=== PATIENT | female | born 1935 | race Caucasian/White ===

== ENCOUNTER 2018-06-29 11:43 | Day surgery (SDC) | payer MEDICARE, BC ==
[2018-06-27 15:19] VITALS: BMI 27.3
[~2018-06-29 11:43] MED LIST: LACTATED RINGERS 1,000 ML IV SCH; LIDOCAINE 1% 20 ML VIAL (10MG/ML) FOR IV START INTRADERMA PRN; MIDAZOLAM (PF) 2 MG/2 ML VIAL IV PRN
[2018-06-29 11:54] VITALS: RESP 16; TEMP 97.9
[2018-06-29] MEDS ORDERED: PROPOFOL 10 MG/ML 20 ML VIAL IV ONE (12:59)
--- NOTE | 2018-06-29 13:40 | P.PCN ---
Date of Procedure: 06/29/18 Description of Procedure: BRIEF HISTORY: A 82-year-old female who presents for EGD with dilation for treatment of esophageal dysphagia. The patient had a prior history of esophageal foreign body. For years ago at which time the patient was taken for EGD and underwent dilation with a 54-Cambodian balloon dilator. The patient presented to clinic reporting intermittent episodes of solid food dysphagia. She reports that one of the episodes lasted 4 hours and she was planning on presenting to the emergency department for further evaluation for the Past. The patient has been unable to tolerate Zantac and Prilosec in the past reporting vomiting with the medications.. PROCEDURE PERFORMED: Esophagogastroduodenoscopy with biopsy and rigid esophageal dilation. PREOPERATIVE DIAGNOSIS: Esophageal dysphagia. ESTIMATED BLOOD LOSS: Minimal. IV sedation per anesthesia. PROCEDURE: After informed consent was obtained, the patient was brought into the endoscopy unit. IV sedation was administered by Anesthesia under continuous monitoring. Initially the Olympus GIF-190 video endoscope was inserted into the mouth. Esophagus intubated without any difficulty. It was gradually advanced into the stomach and duodenum and carefully examined. The bulb and the second part of the duodenum appeared normal. The scope at this time was withdrawn to the stomach, adequately insufflated with air, and upon careful examination, mucosa of the antrum, body, cardia and the fundus appeared normal, except for mild scattered erythema in the antrum and body suggestive of mild gastritis which was biopsied. The scope was then withdrawn into the esophagus. The GE junction was located at 30 cm from the incisors. A large hiatal hernia was noted. The esophagus appeared normal, however the proximal esophagus appeared to be somewhat narrowed with gentle pressure needed to pass the endoscope past this point. There were no erosions or ulcerations seen. At this time the endoscope was advanced back into the patient's stomach and a guidewire was passed through the scope. The scope was then withdrawn out of the stomach through the esophagus and out of the mouth as the guidewire was advanced to maintain guidewire position in the stomach. Rigid dilators were then passed over the wire and dilation was performed with 48-Cambodian and 51-Cambodian esophageal dilators. The videoendoscope was then advanced back through the mouth into the esophagus and stomach were second look with blood noted which was lavaged and suctioned with no active bleeding noted. The patient tolerated the procedure well. IMPRESSION: 1. Mild gastritis antrum and body, biopsied. 2. Rigid esophageal dilation. RECOMMENDATIONS: The findings of this examination were discussed with the patient [].
[2018-06-29 14:04] VITALS: BP 139/84; PULSE 70
== END 2018-06-29 14:20 | disposition home or self-care (01) ==
LOC: ORWHC2ENDO 11:43
PROVIDERS: ATTEND Internal Medicine
DX: K29.50 Unspecified chronic gastritis without bleeding (principal); K22.2 Esophageal obstruction; K44.9 Diaphragmatic hernia without obstruction or gangrene; I10 Essential (primary) hypertension; J44.9 Chronic obstructive pulmonary disease, unspecified; M19.90 Unspecified osteoarthritis, unspecified site; K21.9 Gastro-esophageal reflux disease without esophagitis; F41.9 Anxiety disorder, unspecified; Z88.8 Allergy status to other drugs, medicaments and biological substances; Z87.891 Personal history of nicotine dependence
CPT/HCPCS: 88305; 43239; 43248; J2704; 43249

== ENCOUNTER → 2019-09-28 | Outpatient (CLI) | payer MEDICARE, BC ==
--- NOTE | 2019-09-28 18:24 | MR ---
EXAMINATION TYPE: MR hip LT wo con DATE OF EXAM: 09/28/2019 COMPARISON: None HISTORY: Fracture versus avascular necrosis, pain left hip joint space CONTRAST: Performed utilizing 0 mL intravenous Gadavist gadolinium contrast. TECHNIQUE: Multiplanar, multiecho imaging on a 3.0 Eli magnet is performed through the region of th e left hip. Right hip is included within the [id number] for comparison portion of the study. FINDINGS: There is extensive edema throughout the left hip region musculature and subcutaneous tissues. This in cludes the vastus lateralis muscle vastus medialis and rectus femoris. No abnormal fluid collections are identified to suggest abscess. Edema is within the subcutaneous tissues as well however. No joint effusion is evident on the left. A small joint effusion may be present on the right. Differential diagnosis could include but is not limited to myositis, inflammatory myopathies such as those associated with connective tissue diseases No abnormal signal within the femoral head or femoral neck is evident on the left. No suspicious bedolla ges for avascular necrosis are evident. No abnormal fluid within the left hip joint space is evident. IMPRESSIONS: 1. Fairly extensive signal change through left hip 5 muscles both medially and laterally. Lateral is greater. Subcutaneous edema is present. Etiologies for myositis should be considered. 2. No suspicious changes within the femoral head to suggest avascular necrosis.
== END | disposition home or self-care (01) ==
LOC: RADMRIMAIN 15:00
PROVIDERS: ATTEND Orthopaedic Surgery
DX: M79.89 Other specified soft tissue disorders (principal)

== ENCOUNTER 2021-04-16 14:19 | Observation (INO) | payer MEDICARE, BC ==
--- NOTE | 2021-04-16 15:41 | ED ---
General Adult HPI - General Chief complaint: ENT Stated complaint: Vomiting Time Seen by Provider: 04/16/21 15:09 Source: patient Mode of arrival: ambulatory Limitations: no limitations - History of Present Illness Initial comments: Dictation was produced using [employer] dictation software. please excuse any grammatical, word or spelling errors. Chief Complaint: 85-year-old female past medical history of esophageal issues presents to the ER for esophageal foreign body sensation History of Present Illness: Patient is an 85-year-old female she has past medical history of Schatzki's ring and multiple occasions of esophageal foreign body since the ER for sensation of esophageal foreign body. Patient presents with son who is at the bedside. He states that over the last 2-3 years she's had multiple seizures of upper endoscopy were there was impacted food bolus. She is required esophageal balloon dilatation on several occasions. This morning she had breakfast. She states that during eating she noticed that she felt like food was stuck in her throat. She complains of esophageal is foreign body sensation in her lower throat and upper chest area. Patient had breakfast at approximately 9 AM. Since then she has been spitting up. She denies any shortness of breath. The ROS documented in this emergency department record has been reviewed and confirmed by me. Those systems with pertinent positive or negative responses have been documented in the HPI. All other systems are other negative and/or noncontributory. PHYSICAL EXAM: General Impression: Alert and oriented x3, spitting up HEENT: Normocephalic atraumatic, extra-ocular movements intact, pupils equal and reactive to light bilaterally, mucous membranes moist. Cardiovascular: Heart regular rate and rhythm Chest: Able to complete full sentences, no retractions, no tachypnea Abdomen: abdomen soft, non-tender, non-distended, no organomegaly Musculoskeletal: Pulses present and equal in all extremities, no peripheral edema Motor: no focal deficits noted Neurological: CN II-XII grossly intact, no focal motor or sensory deficits noted Skin: Intact with no visualized rashes Psych: Normal affect and mood ED course: 85 y old female past medical history of esophageal Schatzki's ring presents to the ER for esophageal foreign body sensation since breakfast this morning. Vital signs upon arrival are within acceptable limits. Contacted Dr. Carpenter. Initial plan was to do a stat EGD for evaluation however there was no availability for anesthesiology to do sedation for the procedure. Dr. Carpenter request the patient be admitted to medicine and will have EGD in the morning. Patient is agreeable with plan. - Related Data Home Medications Medication Instructions Recorded Confirmed Latanoprost/Pf [Latanoprost 0.005% 1 drop RIGHT EYE HS 06/27/18 04/16/21 Eye Drop] Omeprazole 20 mg PO DAILY 04/16/21 04/16/21 Timolol 0.5% Ophth Soln [Timoptic 1 drop RIGHT EYE BID 04/16/21 04/16/21 0.5% Ophth Soln] prednisoLONE ACETATE 1% OPHTH 1 drops LEFT EYE DAILY 04/16/21 04/16/21 [Pred Forte 1%] Allergies Allergy/AdvReac Type Severity Reaction Status Date / Time esomeprazole [From Nexium] Allergy Nausea & Verified 04/16/21 16:08 Vomiting Review of Systems ROS Statement: Those systems with pertinent positive or pertinent negative responses have been documented in the HPI. ROS Other: All systems not noted in ROS Statement are negative. Past Medical History Additional Past Medical History / Comment(s): eye disorder History of Any Multi-Drug Resistant Organisms: None Reported Past Surgical History: Adenoidectomy, Appendectomy, Tonsillectomy Past Anesthesia/Blood Transfusion Reactions: No Reported Reaction Past Psychological History: No Psychological Hx Reported Smoking Status: Never smoker Past Alcohol Use History: Daily Past Drug Use History: None Reported - Past Family History Mother Family Medical History: No Reported History General Exam Limitations: no limitations Course Vital Signs 04/16/21 14:37 Temperature 97.8 F Pulse Rate 73 Respiratory 20 Rate Blood Pressure 151/89 O2 Sat by Pulse 98 Oximetry Disposition Clinical Impression: Food impaction of esophagus Disposition: ADMITTED IP TO THIS [facility] Condition: Fair Referrals: None,Stated [Primary Care Provider] - 1-2 days
[2021-04-16] MEDS ORDERED: SODIUM CHLORIDE 0.9% 500 ML 500 ML IV STA (17:33)
[2021-04-16] MEDS ORDERED: SODIUM CHLORIDE 0.9% 1,000 ML IV STA (17:33)
[2021-04-16] MEDS ORDERED: NALOXONE 0.4 MG/ML 1 ML VIAL IV PRN (17:33)
[2021-04-16 17:48] LABS: Basophils # (A) 0.1 k/uL (0-0.2); Basophils % (A) 1 %; Eosinophils # (A) 0.5 k/uL (0-0.7); Eosinophils % (A) 4 %; HCT 44.3 % (34.0-46.0); HGB 15.1 gm/dL (11.4-16.0); Lymphocytes # (A) 1.4 k/uL (1.0-4.8); Lymphocytes % (A) 13 %; MCH 31.3 pg (25.0-35.0); MCHC 34.1 g/dL (31.0-37.0); MCV 91.9 fL (80.0-100.0); Monocytes # (A) 0.5 k/uL (0-1.0); Monocytes % (A) 4 %; Neutrophils # (A) 8.2 k/uL (1.3-7.7); Neutrophils % (A) 77 %; Platelet Count 267 k/uL (150-450); RBC 4.82 m/uL (3.80-5.40); RDW 12.1 % (11.5-15.5); WBC 10.6 k/uL (3.8-10.6)
[2021-04-16 17:58] LABS: African American GFR (CKD) >90 (>60 ml/min/1.73 sqM); Anion Gap 7 mmol/L; Blood Urea Nitrogen 14 mg/dL (7-17); Carbon Dioxide 29 mmol/L (22-30); Chloride 98 mmol/L (98-107); Glucose 114 mg/dL (74-99); Non-African American GFR(CKD) 79 (>60 ml/min/1.73 sqM); Potassium 4.6 mmol/L (3.5-5.1); Sodium 134 mmol/L (137-145)
[2021-04-16] MEDS ORDERED: IV FLUID CONTINUATION 900 ML IV ONE (20:03)
[2021-04-16] MEDS ORDERED: PROPOFOL 10 MG/ML 20 ML VIAL IV ONE (20:10)
--- NOTE | 2021-04-16 20:29 | P.PCN ---
Date of Procedure: 04/16/21 Procedure(s) Performed: BRIEF HISTORY: Patient is a 85-year-old, pleasant, white female scheduled for an upper endoscopy as a part of evaluation of acute food impaction for which she came to the emergency room this evening. She has prior history of GERD and Schatzki's ring for which she underwent EGD with balloon dilation in July of this year.. PROCEDURE PERFORMED: Esophagogastroduodenoscopy followed body removal. PREOPERATIVE DIAGNOSIS: Acute food impaction. IV sedation per anesthesia. PROCEDURE: After informed consent was obtained, the patient was brought into the endoscopy unit. IV sedation was administered by Anesthesia under continuous monitoring. Initially the Olympus GIF-140 video endoscope was inserted into the mouth. Esophagus intubated without any difficulty. It was gradually advanced into the midesophagus where there was large amount of liquid and solid food noted. The liquid was aspirated. Using a Vidal net I was able to retrieve some of the solid pieces from the esophagus. Subsequently I was gently able to push the rest of the food bolus into the stomach. The scope was advanced into the stomach and duodenum and carefully examined. The bulb and the second part of the duodenum appeared normal. The scope at this time was withdrawn to the stomach, adequately insufflated with air, and upon careful examination, mucosa of the antrum, body, cardia and the fundus appeared normal. The scope was then withdrawn into the esophagus. Moderate hiatal hernia noted. The GE junction was located at 32 cm from the incisors. It was a distal esophageal stricture identified with circumferential erythema with a luminal diameter of 12 mm. The mid and distal esophagus appeared slightly tortuous. The proximal esophagus appeared normal. The patient tolerated the procedure well. IMPRESSION: 1. Large amount of liquid and solid food noted in the mid and distal esophagus status post removal as described above. 2. Distal esophageal stricture at the GE junction and moderate size hiatal hernia. RECOMMENDATIONS: The findings of this examination were discussed with the pat ieremberto . She'll be observed in the hospital until tomorrow morning. We'll start her on a full liquid diet. If she is able to tolerate her diet when she can be discharged home tomorrow morning..
--- NOTE | 2021-04-16 20:53 | CONS ---
CONSULTATION DATE OF DICTATION: 04/16/2021 REASON FOR CONSULTATION: Acute food impaction. HISTORY OF PRESENT ILLNESS: The patient is an 85-year-old pleasant white female with history of GERD and Schatzki's ring, for which she underwent EGD with dilation about 10 months ago. She presented to the emergency room with acute food impaction. She was eating some breakfast this morning with avocado garlic and felt like food got stuck in her mid esophagus. She tried drinking water, with no help. She came to the emergency room and subsequently was admitted to observation. She is scheduled for an upper endoscopy for foreign body removal. PAST MEDICAL HISTORY: Gastroesophageal reflux disease. MEDICATIONS AT HOME: Prednisone eyedrops, omeprazole 20 mg daily, timolol eyedrops. ALLERGIES: NEXIUM. SOCIAL HISTORY: No smoking. No alcohol use. FAMILY HISTORY: Unremarkable. REVIEW OF SYSTEMS: CARDIOPULMONARY: No chest pain or shortness of breath. GENITOURINARY: No dysuria or hematuria. MUSCULOSKELETAL: Unremarkable. SKIN: Unremarkable. ENDOCRINE: Unremarkable. PSYCHIATRY: Unremarkable. NEUROLOGY: Unremarkable. ENT/VISION: Unremarkable. CONSTITUTIONAL: No recent weight loss. No fever, chills, night sweats. PHYSICAL EXAMINATION: Blood pressure 151/89, pulse rate 73, temperature 97.8. HEENT examination unremarkable. Conjunctivae pink. Sclerae anicteric. Oral cavity no lesions. Neck no JVD or lymph node enlargement. Chest was clear to auscultation. Heart regular rate and rhythm. Abdomen is soft. Bowel sounds positive. No organomegaly. Neuro: Alert and oriented x3. No focal deficits. LABS: Within normal limits. CBC normal. Basic metabolic panel within normal limits. Coronavirus PCR is negative. IMPRESSION: 1. Acute food impaction. 2. History of gastroesophageal reflux disease. 3. History of distal esophageal Schatzki's ring, status post dilation in November of 2020. RECOMMENDATIONS: 1. Will proceed with EGD with foreign body removal. 2. Discussed with the patient risks, benefits and complications of the procedure, and she is agreeable to it. Thank you for this consultation. JASMEET / GIANNA: [id number] /
[2021-04-17 08:58] VITALS: BP 122/64; PULSE 66; RESP 18; TEMP 97.9
--- NOTE | 2021-04-17 12:20 | P.DS ---
Providers Date of admission: 04/16/21 17:34 Attending physician: Vimal Owen Consults: 04/16/21 17:11 Consult Physician Routine Consulting Provider: Ofelia Carpenter Consult Reason/Comments: esophageal food impaction Do you want consulting provider notified?: Already Contacted Primary care physician: Stated None Hospital Course: Refer to [facility] for further details Patient Condition at Discharge: Fair Plan - Discharge Summary Discharge Rx Participant: Yes New Discharge Prescriptions: No Action Latanoprost/Pf [Latanoprost 0.005% Eye Drop] 1 drop RIGHT EYE HS Timolol 0.5% Ophth Soln [Timoptic 0.5% Ophth Soln] 1 drop RIGHT EYE BID prednisoLONE ACETATE 1% OPHTH [Pred Forte 1%] 1 drops LEFT EYE DAILY Omeprazole 20 mg PO DAILY Discharge Medication List Latanoprost/Pf [Latanoprost 0.005% Eye Drop] 1 drop RIGHT EYE HS 06/27/18 [History] Omeprazole 20 mg PO DAILY 04/16/21 [History] Timolol 0.5% Ophth Soln [Timoptic 0.5% Ophth Soln] 1 drop RIGHT EYE BID 04/16/21 [History] prednisoLONE ACETATE 1% OPHTH [Pred Forte 1%] 1 drops LEFT EYE DAILY 04/16/21 [History] Follow up Appointment(s)/Referral(s): Ofelia Carpenter MD [STAFF PHYSICIAN] - 1 Week Discharge Disposition: HOME SELF-CARE
--- NOTE | 2021-04-17 12:20 | P.HPIM ---
History of Present Illness Patient is a pleasant 85-year-old female with known history of Schatzki's ring came in with the impacted food in the esophagus after eating Accardo and garlic. Patient underwent upper GI endoscopy with removal of the retained food. Patient was monitored overnight on clear liquid diet and patient is tolerating patient is doing well is ready to go home patient will be discharged today patient has mild hyponatremia. REVIEW OF SYSTEMS: CONSTITUTIONAL: No fever, no malaise, no fatigue. HEENT: No recent visual problems or hearing problems. Denied any sore throat. CARDIOVASCULAR: No chest pain, orthopnea, PND, no palpitations, no syncope. PULMONARY: No shortness of breath, no cough, no hemoptysis. GASTROINTESTINAL: No diarrhea, no nausea, no vomiting, no abdominal pain. NEUROLOGICAL: No headaches, no weakness, no numbness. HEMATOLOGICAL: Denies any bleeding or petechiae. GENITOURINARY: Denies any burning micturition, frequency, or urgency. MUSCULOSKELETAL/RHEUMATOLOGICAL: Denies any joint pain, swelling, or any muscle pain. ENDOCRINE: Denies any polyuria or polydipsia. The rest of the 14-point review of systems is negative. PHYSICAL EXAMINATION: GENERAL: The patient is alert and oriented x3, not in any acute distress. Well developed, well nourished. HEENT: Pupils are round and equally reacting to light. EOMI. No scleral icterus. No conjunctival pallor. Normocephalic, atraumatic. No pharyngeal erythema. No thyromegaly. CARDIOVASCULAR: S1 and S2 present. No murmurs, rubs, or gallops. PULMONARY: Chest is clear to auscultation, no wheezing or crackles. ABDOMEN: Soft, nontender, nondistended, normoactive bowel sounds. No palpable organomegaly. MUSCULOSKELETAL: No joint swelling or deformity. EXTREMITIES: No cyanosis, clubbing, or pedal edema. NEUROLOGICAL: Gross neurological examination did not reveal any focal deficits. SKIN: No rashes. Assessment and plan 1 dysphagia: Secondary to Schatzki's ring patient underwent upper GI endoscopy with removal of impacted food patient will will come back for repeat esophageal dilatation procedure. Clinically doing well. Patient is presently on clear liquid diet and diet recommendations as per gastroenterology will return to gastroenterology for discharge diet recommendations. -Hypotonic hyponatremia received IV fluids Gastro esophageal reflux disease DVT prophylaxis: Past Medical History Additional Past Medical History / Comment(s): eye disorder , pt states she has had issues with her esophagus in the past with balloon dialation. History of Any Multi-Drug Resistant Organisms: None Reported Past Surgical History: Adenoidectomy, Appendectomy, Tonsillectomy Past Anesthesia/Blood Transfusion Reactions: No Reported Reaction Past Psychological History: No Psychological Hx Reported Smoking Status: Never smoker Past Alcohol Use History: None Reported Additional Past Alcohol Use History / Comment(s): "quit years ago". 1 glass wine/day Past Drug Use History: None Reported - Past Family History Mother Family Medical History: No Reported History Medications and Allergies Home Medications Medication Instructions Recorded Confirmed Type Latanoprost/Pf [Latanoprost 0.005% 1 drop RIGHT EYE HS 06/27/18 04/16/21 History Eye Drop] Omeprazole 20 mg PO DAILY 04/16/21 04/16/21 History Timolol 0.5% Ophth Soln [Timoptic 1 drop RIGHT EYE BID 04/16/21 04/16/21 History 0.5% Ophth Soln] prednisoLONE ACETATE 1% OPHTH 1 drops LEFT EYE DAILY 04/16/21 04/16/21 History [Pred Forte 1%] Allergies Allergy/AdvReac Type Severity Reaction Status Date / Time esomeprazole [From Nexium] Allergy Nausea & Verified 04/16/21 16:08 Vomiting Physical Exam Vitals: Vital Signs Temp Pulse Pulse Resp BP BP Pulse Ox 04/17/21 07:00 97.9 F 66 18 122/64 98 04/17/21 02:15 97.6 F 76 16 128/76 99 04/16/21 19:35 16 04/16/21 19:15 98.1 F 70 16 154/85 97 04/16/21 18:27 97.9 F 78 16 157/79 98 04/16/21 14:37 97.8 F 73 20 151/89 98 Intake and Output 04/16/21 04/17/21 04/17/21 22:59 06:59 14:59 Intake Total 100 354 Balance 100 354 Intake: IV 100 Oral 354 Other: Voiding Method Toilet # Voids 2 3 Weight 62.596 kg Results CBC & Chem 7: 04/16/21 17:36 04/16/21 17:36 Labs: Abnormal Lab Results - Last 24 Hours (Table) 04/16/21 04/16/21 Range/Units 17:36 17:36 Neutrophils # 8.2 H (1.3-7.7) k/uL Sodium 134 L (137-145) mmol/L Glucose 114 H (74-99) mg/dL Thrombosis Risk Factor Assmnt - Choose All That Apply Any of the Below Risk Factors Present?: Yes Each Factor Represents 1 point: Obesity (BMI >25) Other Risk Factors: Yes Each Risk Factor Represents 3 Points: Age 75 years or older Other congenital or acquired thrombophilia - If yes, enter type in comment: No Thrombosis Risk Factor Assessment Total Risk Factor Score: 4 Thrombosis Risk Factor Assessment Level: Moderate Risk
--- NOTE | 2021-04-17 12:51 | P.PN ---
Subjective Progress Note Date: 04/17/21 Principal diagnosis: Food impaction This is a 85-year-old female who has a history of GERD and Schatzki's ring which he has undergone EGD with dilation in the past. She presented to the emergency room with acute food impaction. Yesterday she underwent EGD with foreign body removal. There was noted to be a large amount of liquid and solid food noted in the mid and distal esophagus status post removal. Distal esophageal stricture at the GE junction and moderate size hiatal hernia. Patient has tolerated her full liquid diet today. She denies any feelings of dysphagia. Patient is requesting to go home. She is denying any abdominal pain, nausea, or vomiting. Objective - Vital Signs Vital signs: Vital Signs Temp 97.9 F 04/17/21 07:00 Pulse 66 04/17/21 07:00 Resp 18 04/17/21 07:00 BP 122/64 04/17/21 07:00 Pulse Ox 98 04/17/21 07:00 Intake & Output 04/16/21 04/17/21 04/17/21 18:59 06:59 18:59 Intake Total 100 Balance 100 Weight 62.596 kg Intake: IV 100 Other: Voiding Method Toilet # Voids 3 - Exam General appearance: The patient is alert, oriented, appears in no acute distress. HET: Head is normocephalic and atraumatic. Conjunctiva pink. Sclera anicteric. Neck: Supple without lymphadenopathy. Abdomen: Soft, nontender, nondistended with bowel sounds. No guarding or rigidity. Extremities: Normal skin color and turgor. No pedal edema Skin: No rashes, no jaundice Neurological: No focal deficits. Alert and oriented -3. - Labs CBC & Chem 7: 04/16/21 17:36 04/16/21 17:36 Labs: Abnormal Lab Results - Last 24 Hours (Table) 04/16/21 04/16/21 Range/Units 17:36 17:36 Neutrophils # 8.2 H (1.3-7.7) k/uL Sodium 134 L (137-145) mmol/L Glucose 114 H (74-99) mg/dL Assessment and Plan (1) Food impaction of esophagus Status: Acute Code(s): T18.128A - FOOD IN ESOPHAGUS CAUSING OTHER INJURY, INITIAL ENCOUNTER SNOMED Code(s): 238624334 Plan: 1. Advance diet as tolerated, discussed with patient and her family importance of having chopped diet, chewing well, followed by drinking 2. Follow-up with Dr. Palacios's office for possible outpatient EGD with dilation. 3. Patient is cleared by gastroenterology for discharge. Thank you for this consult dictation. We will sign off at this time. Dr. Merry Carpenter I agree with the dictator's note, documented as a scribe by Lynette Vidal.
== END 2021-04-17 12:40 | disposition home or self-care (01) ==
LOC: EC 14:19 → 6NMEDSUR 17:34
PROVIDERS: ADMIT Hospitalist; ATTEND Hospitalist
DX: T18.128A Food in esophagus causing other injury, initial encounter (principal); K22.2 Esophageal obstruction; K44.9 Diaphragmatic hernia without obstruction or gangrene; E87.1 Hypo-osmolality and hyponatremia; H57.9 Unspecified disorder of eye and adnexa; K21.9 Gastro-esophageal reflux disease without esophagitis; E66.9 Obesity, unspecified; Z68.26 Body mass index [BMI] 26.0-26.9, adult; Z20.822 Contact with and (suspected) exposure to COVID-19; Z79.899 Other long term (current) drug therapy; Z88.8 Allergy status to other drugs, medicaments and biological substances; Z90.49 Acquired absence of other specified parts of digestive tract; Z98.890 Other specified postprocedural states
CPT/HCPCS: 99284; 80048; 85025; 87635; 43247; G0378 ×2; J2704

== ENCOUNTER → 2021-10-08 | Outpatient (CLI) | payer MEDICARE, BC ==
--- NOTE | 2021-10-09 05:59 | MR ---
EXAMINATION TYPE: MR pelvis wo/w con DATE OF EXAM: 10/08/2021 COMPARISON: MRI scan of the left hip 09/28/2019 HISTORY: Malignant neoplasm of endocervix. CONTRAST: Standard multiplanar, multisequence MRI departmental protocol images were obtained without contrast a nd with 6 mL intravenous Gadavist gadolinium contrast. The uterus is anteverted and measures 6.2 x 3.4 cm. The endometrium measures 6 mm. There is mild enla rgement of the cervical canal that measures 5 mm. No discrete cervical mass seen. The vagina appears normal. Bladder distends smoothly. No evidence of rectal mass. No free fluid in the pelvis. No eviden ce of adnexal mass. Contrast images show no pathologic enhancement. No evidence of a bowel obstruction. No pelvic mass se en. IMPRESSION: Uterus and cervix do not demonstrate evidence of a tumor mass. The appearance is not significantly di fferent than the old MR scan of 09/28/2019 of the pelvis.
== END | disposition home or self-care (01) ==
LOC: RADMRIMAIN 16:37
PROVIDERS: ATTEND Radiology Radiation Oncology
DX: C53.0 Malignant neoplasm of endocervix (principal)
CPT/HCPCS: 72197; A9585

== ENCOUNTER → 2022-01-15 | Outpatient (CLI) | payer MEDICARE, BC ==
--- NOTE | 2022-01-15 14:45 | PE ---
EXAMINATION TYPE: PET CT fusion skull to thigh DATE OF EXAM: 01/15/2022 COMPARISON: Outside PET/CT August 11, 2021 HISTORY: Cervical cancer progress study. Currently undergoing chemotherapy and radiation treatment. TECHNIQUE: Following the intravenous administration of 9.9 mCi of F-18 FDG, whole body images are pe rformed from the skull base to the midthigh. Images are reviewed on the computer in the coronal, axi al, and sagittal planes. Reconstructed rotating images are created on independent workstation and re viewed on the computer. A localization and attenuation correction CT is performed in conjunction wi th the PET scan. Blood glucose level equals 101. SCAN: Subsequent Scan FINDINGS: SKULL BASE AND NECK: No new areas of abnormal hypermetabolic uptake. CHEST, MEDIASTINUM, AND HILAR REGION: No new areas of abnormal Hypermetabolic uptake. ABDOMEN AND PELVIS: Normal excretion redemonstrated. Excretion along the distal left ureter again see n. Excretion into bladder redemonstrated. Prior visualized abnormal hypermetabolic uptake in the righ t posterior cervix posterior inferior to the bladder now is not clearly identified on current study n ear image 193. No new areas of abnormal hypermetabolic uptake. OSSEOUS STRUCTURES: No new areas of abnormal hypermetabolic uptake. OTHER CT: Large sized hiatal hernia redemonstrated. Prominent pulmonary arteries suggesting underlyin g pulmonary artery hypertension again seen. Coronary artery calcifications are redemonstrated. Dependent rim calcified gallstones redemonstrated. Scattered bilateral pelvic phleboliths again seen. Severe disc space narrowing with endplate sclerosis at L2-L3 level redemonstrated. Diminished size o f thin-walled cyst left ovary now measuring 2.6 x 1.9 cm current study axial image 170. IMPRESSION: Complete positive treatment response as detailed above.
== END | disposition home or self-care (01) ==
LOC: RADPETMAIN 11:54
PROVIDERS: ATTEND Radiology Radiation Oncology
DX: C53.0 Malignant neoplasm of endocervix (principal); Z92.3 Personal history of irradiation; Z85.820 Personal history of malignant melanoma of skin; Z90.89 Acquired absence of other organs; Z79.899 Other long term (current) drug therapy
CPT/HCPCS: 78815; A9552

== ENCOUNTER → 2022-10-12 | Outpatient (CLI) | payer MEDICARE, BC ==
[2022-10-12 12:37] LABS: African American GFR (CKD) >90 (>60 ml/min/1.73 sqM); Blood Urea Nitrogen 13 mg/dL (7-17); Non-African American GFR(CKD) 84 (>60 ml/min/1.73 sqM)
--- NOTE | 2022-10-12 14:37 | CT ---
EXAMINATION TYPE: CT abdomen pelvis w con DATE OF EXAM: 10/12/2022 COMPARISON: PET/CT 01/15/2022 HISTORY: cervical ca CT DLP: 479.1 mGycm CONTRAST: CT scan of the abdomen and pelvis is performed with Oral Contrast and with IV Contrast, patient injec darrion with 100 mL of Isovue 300. FINDINGS: LUNG BASES-: No visible nodule. No infiltrate. Large fixed hiatal hernia noted. LIVER/GB: Uncomplicated cholelithiasis. No space occupying hepatic lesion. Biliary tree is of norm al caliber. PANCREAS: No inflammation. No distinct mass. SPLEEN: No splenic enlargement. No lesion seen. ADRENALS: No nodule. No thickening. KIDNEYS/BLADDER: No hydronephrosis. No nephrolithiasis. No distinct renal mass. Urinary bladder g rossly unremarkable. BOWEL: Normal appendix. Normal bowel caliber. No inflammation. GENITAL ORGANS: Fullness of the uterine cervix is nonspecific. There is endometrial prominence noted measuring 2.1 cm. No distinct uterine mass. No adnexal lesions seen. LYMPH NODES: No greater than 1cm abdominal or pelvic lymph nodes are appreciated. AORTA: No significant abnormality. OSSEOUS STRUCTURES: No significant abnormality is seen. OTHER: No significant additional abnormality is seen. IMPRESSION: 1. Fullness of the uterine cervix is nonspecific. Underlying mass lesion is not excluded. There is en dometrial prominence noted measuring 2.1 cm.
== END | disposition home or self-care (01) ==
LOC: RADCTMAIN 11:32
PROVIDERS: ATTEND Obstetrics & Gynecology
DX: C53.9 Malignant neoplasm of cervix uteri, unspecified (principal); C53.0 Malignant neoplasm of endocervix; Z79.899 Other long term (current) drug therapy; Z90.89 Acquired absence of other organs; Z85.820 Personal history of malignant melanoma of skin; Z92.3 Personal history of irradiation
CPT/HCPCS: 82565; 84520; 74177; 36415; Q9967

== ENCOUNTER → 2023-03-29 | Outpatient (CLI) | payer MEDICARE, BC ==
--- NOTE | 2023-03-29 15:47 | US ---
EXAMINATION TYPE: US pelvic complete DATE OF EXAM: 03/29/2023 COMPARISON: CT abdomen and pelvis 10/12/2022, PET/CT 01/15/22, MR pelvis 10/08/2021. 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 1. Uterus: Anteverted 2. Endometrium: .9 cm of fluid seen within canal. 3. Right Ovary: Obscured by overlying bowel gas 4. Left Ovary: Obscured by overlying bowel gas 5. Bilateral Adnexa: wnl 6. Posterior cul-de-sac: wnl Anteverted uterus with endometrial stripe measuring 5 mm. Fluid is identified within the endometrial canal. No free fluid. Both ovaries are nonvisualized due to overlying bowel gas. No ultrasound eviden ce of cervix abnormality. IMPRESSION: 1. Endometrial stripe is top end of normal measuring 5 mm. Fluid is identified within the endometrial canal. Consider direct visualization if there is clinical concern. 2.No ultrasound evidence of cervix abnormality. Consider direct visualization.
== END | disposition home or self-care (01) ==
LOC: RADUSWWP 14:52
PROVIDERS: ATTEND Obstetrics & Gynecology
DX: C53.0 Malignant neoplasm of endocervix (principal); Z92.21 Personal history of antineoplastic chemotherapy; Z92.3 Personal history of irradiation; Z85.820 Personal history of malignant melanoma of skin; Z90.89 Acquired absence of other organs; Z79.899 Other long term (current) drug therapy
CPT/HCPCS: 76856